=== PATIENT | male | born 2000 | race Hispanic/Latino ===

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

== ENCOUNTER 2024-08-05 13:02 | Emergency (ER) | payer SELFPAY ==
[~2024-08-05] VITALS: Ht 165.1 cm; Wt 102.1 kg
--- NOTE | 2024-08-05 13:14 | ERN ---
ED Note History of Present Illness Stated Complaint: CHEST PAIN,BACK PAIN Chief Complaint: Back Pain-No Injury Time Seen by MD: 13:06 Dictation: PATIENT IS A 24-YEAR-OLD MALE COMING IN TODAY STATES HE IS NOT HAVING ANY PAIN AT THE PRESENT TIME HOWEVER LAST WEEK WOKE UP WITH CHEST PAIN AND UPPER BACK PAIN. HE SAID HE TOOK SOME MEDICATIONS [id number] FOR THE PAIN AND IT TOOK A WHILE BUT THE PAIN WENT AWAY. HE SAID IT HE STATES HE IS NOT HAVING ANY PAIN NOW HOWEVER COLD WANTS TO BE CHECKED OUT. NO PRIMARY CARE DOCTOR NO ALLERGIES NO HISTORY OF GASTRITIS GERD BACK INJURIES CAD HYPERTENSION DIABETES. Allergies: Coded Allergies: No Known Allergies (Unverified Allergy, Unknown, 08/05/24) Past Medical History RN Note Reviewed/Agreed w/PFSH: Yes Review of System Dictation CONSTITUTIONAL: NEGATIVE EXCEPT FOR HPI HEAD/FACE: NEGATIVE EXCEPT FOR HPI EENT: NEGATIVE EXCEPT FOR HPI RESPIRATORY: NEGATIVE EXCEPT FOR HPI CHEST PAIN GASTROINTESTINAL/ABDOMINAL: NEGATIVE EXCEPT FOR HPI GENITOURINARY: NEGATIVE EXCEPT FOR HPI MUSCULOSKELETAL: NEGATIVE EXCEPT FOR HPI THORACIC PAIN INTEGUMENTARY: NEGATIVE EXCEPT FOR HPI NEUROLOGICAL/PSYCH: NEGATIVE EXCEPT FOR HPI HEMATOLOGIC/LYMPHATIC: NEGATIVE EXCEPT FOR HPI ALL SYSTEMS NEGATIVE, EXCEPT NOTED ABOVE. 13 POINT REVIEW OF SYSTEMS ASSESSED AND ALL NEGATIVE EXCEPT FOR ABOVE. Initial Vital Sign VS Vital Signs Date Time Temp Pulse Resp B/P (MAP) Pulse Ox O2 Delivery O2 Flow Rate FiO2 08/05/24 13:10 97.5 58 16 140/80 98 Room Air 0 08/05/24 13:23 21 Physical Exam Dictation VITAL SIGNS REVIEWED GENERAL APPEARANCE: ALERT, ORIENTED X 3, NO ACUTE DISTRESS, WELL DEVELOPED, NOURISHED. OBESE/0/10 AT THE PRESENT TIME HEAD AND FACE: NON-TRAUMATIC. EYES: PERRL, PINK CONJUNCTIVAS, EYELID NO TRAUMA, ANTERIOR CHAMBER WITH ARCUS SENILIS. EARS: PINNAS INTACT AND NO SIGNS OF TRAUMA OR ERYTHEMA EAR CANALS CLEAR AND NO DISCHARGE TM NO ERYTHEMA NOSE: NO DISCHARGE, NO BLEEDING. OROPHARYNX: MOUTH NORMAL, TONGUE PINK, PHARYNX CLEAR,NO ERYTHEMA, TONSILS NO EXUDATES, NO ABSCESSES NOTED, MUCOUS MEMBRANE MOIST NECK: SUPPLE, NON-TENDER, NO THYROMEGALY, NO MASSES, NO JVD, NO BRUITS BREAST:DEFERRED CHEST:NO TENDERNESS, NO CREPITUS, NO PARADOXICAL MOVEMENT, NO RETRACTIONS LUNGS:CLEAR, WELL-VENTILATED, SYMMETRIC, NO RALES, NO WHEEZING, NO RHONCHI, NO STRIDOR, GOOD BREATH SOUNDS BILATERALLY HEART: REGULAR RATE, REGULAR RHYTHM, NO MURMUR, NO GALLOPS VASCULAR: NO PERIPHERAL EDEMA, ABDOMEN: SOFT, POSITIVE BOWEL SOUNDS, NONDISTENDED, NO GUARDING, NONTENDER, NO REBOUND, NO MASSES NO HEPATOMEGALY, NO SPLENOMEGALY, NO BEATTY'S SIGN, NO HERNIAS. RECTAL: DEFERRED GENITAL: DEFERRED NEUROLOGICAL: NORMAL SPEECH, MOTOR FUNCTION INTACT, SENSORY FUNCTION INTACT MUSCULOSKELETAL: NECK NONTENDER, FULL RANGE OF MOTION, BACK NONTENDER, FULL RANGE OF MOTION, EXTREMITIES: NONTENDER, FULL RANGE OF MOTION SKIN: COLOR PINK, DRY, NO TURGOR, NO RASH, NO LACERATIONS, NO ABRASIONS, NO CONTUSIONS. LYMPHATIC: DEFERRED Results (Laboratory/Radiology) Laboratory/Radiology Laboratory Tests Test 08/05/24 13:21 White Blood Count 8.4 K/uL (4.8-10.8) Red Blood Count 4.71 MIL/uL (4.50-6.20) Hemoglobin 14.6 g/dL (14.0-18.0) Hematocrit 41.4 % (42-54) L Mean Corpuscular Volume 87.9 fL (79-99) Mean Corpuscular Hemoglobin 31.0 pg (27.0-33.0) Mean Corpuscular Hemoglobin Concent 35.3 g/dL (32.0-36.0) Red Cell Distribution Width 13.2 % (11.0-15.5) Platelet Count 277 K/uL (130-400) Mean Platelet Volume 9.9 fL (7.5-10.5) Immature Granulocyte % (Auto) 0.4 % (0-1) Neutrophils (%) (Auto) 64.9 % (40.0-77.0) Lymphocytes (%) (Auto) 19.8 % (21.0-51.0) L Monocytes (%) (Auto) 8.7 % (3.0-13.0) Eosinophils (%) (Auto) 5.6 % (0.0-8.0) Basophils (%) (Auto) 0.6 % (0.0-5.0) Neutrophils # (Auto) 5.5 K/uL (1.8-7.7) Lymphocytes # (Auto) 1.7 K/uL (1.0-4.8) Monocytes # (Auto) 0.7 K/uL (0.1-1.0) Eosinophils # (Auto) 0.47 K/uL (0.00-0.70) Basophils # (Auto) 0.05 K/uL (0.00-0.20) Absolute Immature Granulocyte (auto 0.03 K/uL (0-1) Nucleated Red Blood Cells 0.0 % (0.0-0.19) Sodium Level 138 mmol/L (136-145) Potassium Level 3.6 mmol/L (3.5-5.1) Chloride Level 104 mmol/L (101-111) Carbon Dioxide Level 27 mmol/L (21-32) Blood Urea Nitrogen 9 mg/dL (7-18) Creatinine 0.8 mg/dL (0.5-1.3) Glomerular Filtration Rate Calc 128 mL/min (>90) Random Glucose 102 mg/dL (70-105) Total Calcium 8.7 mg/dL (8.5-10.1) Troponin I High Sensitivity 6 ng/L (4-75) Labs Reviewed?: Yes EKG Comment: EKG SINUS BRADYCARDIA/HEART RATE 59/AXIS NORMAL/EARLY REPOLARIZATION SEEN V2 THROUGH V SIX ED Course ED Course Orders Procedure Category Date Status Time Cbc With Differential LAB 08/05/24 Complete 13:11 12 Lead Ekg Tracing- EKG 08/05/24 Logged Technical 13:11 Troponin I High LAB 08/05/24 Complete Sensitivity 13:11 Basic Metabolic Panel LAB 08/05/24 Complete 13:11 Vital Signs Date Time Temp Pulse Resp B/P (MAP) Pulse Ox O2 Delivery O2 Flow Rate FiO2 08/05/24 13:23 97.5 58 16 140/80 98 Room Air* 0 21 08/05/24 13:10 97.5 58 16 140/80 98 Room Air 0 1345/LABS EKG AND TROPONIN ALL NORMAL. PATIENT WILL BE DISCHARGED HOME TO FOLLOW UP WITH THE DOCTOR, WE WILL BE GIVEN LIST OF PRIMARY CARE DOCTORS ON STAFF. HEART Score Response (Comments) Value EKG: Repolarization changes 1 Age: < 45yrs (0) 0 Risk Factors: No known risk factors (0) 0 Initial Troponin: Normal limit (0) 0 Total 1 Medical Decision Making MDM MEDICAL DISCHARGE MAKING BASED ON BASIC LABS AND AN EKG FOR CHEST PAIN. PATIENT HAS A ECTOPIC BRADYCARDIA TROPONIN NEGATIVE AND LABS NEGATIVE DISCHARGED HOME WITH ATYPICAL CHEST DX & DISP Disposition: Discharge Departure Impression: Primary Impression: Atypical chest pain Condition: Stable Additional Instructions: FOLLOW-UP WITH PRIMARY CARE PROVIDER IN 1 TO 2 DAYS. TAKE MEDICATIONS DIRECTED HERE IN THE EMERGENCY ROOM. OKAY TO CONTINUE HOME MEDICATIONS UNLESS OTHERWISE DISCUSSED DURING YOUR VISIT IN THE EMERGENCY ROOM TODAY. RETURN TO YOUR NEAREST EMERGENCY ROOM IF SYMPTOMS WORSEN OR IF THERE IS NO IMPROVEMENT. CALL 911 IF YOU NEED IMMEDIATE ASSISTANCE. TAKE TYLENOL OR MOTRIN [id number] NEEDED AND IF NO CONTRAINDICATIONS ARE PRESENT. INCREASE ORAL HYDRATION. A WOUND CULTURE OR URINE CULTURE WAS ORDERED HERE IN THE EMERGENCY ROOM DEPARTMENT PLEASE FOLLOW-UP WITH PRIMARY CARE PROVIDER AND ADVISE THEM TO GET REPEAT PORTS FROM OUR FACILITY. IF YOU HAD ANY UYEN WRAP/SPLINTS THAT WERE APPLIED HERE, PLEASE DO NOT REMOVE THEM UNTIL YOU SEE YOUR PRIMARY CARE OR SPECIALTY. DIET AND ACTIVITY TOLERATED. CALL [facility] FOR AN APPOINTMENT IN THE NEXT 2-3 DAYS IN YOUR CONVENIENCE Referrals: SELF,REFERRAL (PCP) JOSE ALVAREZ MD Time of Disposition: 13:50 I have reviewed the case, and I agree with, Diagnosis and Plan DAVID AGUDELO NP Aug 05, 2024 13:14
[2024-08-05 13:23] VITALS: BP 140/80; PULSE 58; RESP 16; TEMP 97.6; O2SAT 98
[2024-08-05 13:28] LABS: BASOPHILS # (AUTO) 0.05 K/uL (0.00-0.20); BASOPHILS % (AUTO) 0.6 % (0.0-5.0); EOSINOPHILS # (AUTO) 0.47 K/uL (0.00-0.70); EOSINOPHILS % (AUTO) 5.6 % (0.0-8.0); HEMATOCRIT 41.4 % (42-54); IMMATURE GRANULOCYTE ABSOLUTE 0.03 K/uL (0-1); LYMPHOCYTES # (AUTO) 1.7 K/uL (1.0-4.8); LYMPHOCYTES % (AUTO) 19.8 % (21.0-51.0); MEAN CORPUSCULAR HGB CONC 35.3 g/dL (32.0-36.0); MEAN CORPUSCULAR VOLUME 87.9 fL (79-99); MONOCYTES # (AUTO) 0.7 K/uL (0.1-1.0); MONOCYTES % (AUTO) 8.7 % (3.0-13.0); NEUTROPHILS # (AUTO) 5.5 K/uL (1.8-7.7); NEUTROPHILS % (AUTO) 64.9 % (40.0-77.0); PLATELET COUNT (AUTO) 277 K/uL (130-400); RED BLOOD CELL COUNT(AUTO) 4.71 MIL/uL (4.50-6.20); RED CELL DISTRIBUTION WIDTH 13.2 % (11.0-15.5); WHITE BLOOD COUNT (AUTO) 8.4 K/uL (4.8-10.8)
[2024-08-05 13:39] LABS: CREATININE 0.8 mg/dL (0.5-1.3); POTASSIUM 3.6 mmol/L (3.5-5.1)
--- NOTE | 2024-08-05 13:51 | EKG ---
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
[2024-08-06] MEDS ORDERED: FAMO10TA39 PO (06:26)
== END 2024-08-05 14:02 | disposition home or self-care (01) ==
LOC: EDH 13:02
DX: R07.89 Other chest pain (principal)
CPT/HCPCS: 36415; 80048; 84484; 85025; 93005; 99284

== ENCOUNTER 2024-08-06 05:02 | Emergency (ER) | payer SELFPAY ==
[~2024-08-06] VITALS: Ht 165.1 cm; Wt 104.3 kg
--- NOTE | 2024-08-06 05:11 | EKG ---
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
[2024-08-06] MEDS: LIDOCAINE HCL 2% VISCOUS 15 ML UDCUP PO ONE (05:24)
[2024-08-06] MEDS: MAG/ALUM/SIMETH 30 ML UDCUP PO ONE (05:24)
[2024-08-06] MEDS: LACTATED RINGERS 1000ML IV STA (05:25)
[2024-08-06] MEDS: CYCLOBENZAPRINE HCL 10 MG TABLET PO ONE (05:25)
[2024-08-06] MEDS: ketOROlac 30MG VIAL (30MG/ML) IVP ONE (05:25)
[2024-08-06] MEDS: DICYCLOMINE HCL 10 MG/5 ML ML PO ONE (05:25)
--- NOTE | 2024-08-06 05:33 | ERN ---
General Chief Complaint: Chest Pain Stated Complaint: CHEST PAIN Time Seen by MD: 05:15 Source: patient History of Present Illness Initial Comments Patient is a healthy 24-year-old male who today was stricken with acute midepigastric and right upper quadrant pain. He has no other symptoms. This is the 1st time he has had this pain. No shortness of breath no chest pain no upp er respiratory tract infection no change in his urinations. He is otherwise healthy no meds no allergies. He does not use recreational drugs. Allergies: Coded Allergies: No Known Allergies (Unverified Allergy, Unknown, 08/05/24) Past Medical History Past Medical History: No Pertinent History Past Surgical History: None Constitutional: (-) chills, (-) diaphoresis, (-) fever, (-) malaise, (-) weakness, (-) other documentation EENTM: (-) eye pain, (-) blurred vision, (-) tearing, (-) double vision, (-) ear pain, (-) ear discharge, (-) nose pain, (-) nose congestion, (-) throat pain, (-) Throat swelling, (-) mouth pain, (-) tooth pain, (-) mouth swelling, (-) other documentation Respiratory: (-) cough, (-) orthopnea, (-) short of breath, (-) stridor, (-) wheezing, (-) other documentation Cardiovascular: (-) chest pain, (-) edema, (-) palpitations, (-) syncope, (-) dyspnea on exertion, (-) other documentation Gastrointestinal/Abdominal: (-) nausea, (-) vomiting, (-) diarrhea, (-) abdominal pain, (-) abdominal distention, (-) constipation, (-) rectal bleeding, (-) dark stool/melena, (-) other documentation Musculoskeletal: (-) Neck pain, (-) back pain, (-) Flank Pain, (-) joint pain, (-) joint swelling, (-) muscle pain, (-) muscle stiffness, (-) gout, (-) other documentation Skin: (-) laceration, (-) contusion, (-) abrasion, (-) abscess, (-) rash, (-) change in color, (-) change in hair, (-) change in nails, (-) diaphoresis, (-) dryness, (-) other documentation Neuro: (-) altered mental status, (-) headache, (-) syncope, (-) paralysis, (-) numbness, (-) seizure, (-) pre-existing deficit, (-) tremors, (-) weakness, (-) dizziness, (-) slurred speech, (-) vertigo, (-) other documentation Physical Exam General Appearance: (+) moderate distress Orientation: (+) alert, (+) oriented x 3 Head/Face Trauma: No Eye: bilateral eye normal inspection, bilateral eye PERRL, bilateral eye EOMI Ear, Nose, Throat: (+) hearing grossly normal, (+) normal ENT inspection Neck: (+) normal inspection, (+) supple Respiratory: (+) chest non-tender, (+) lungs clear, (+) well ventilated Heart: (+) regular, (+) no gallop Vascular: (+) no edema, (+) normal peripheral pulse Gastrointestinal: (+) soft, (+) tender, (+) bowel sound absent Gastrointestinal Comment Patient with sub xiphoid pain and tenderness. Back: (+) no CVA tenderness Extremities: (+) normal range of motion, (+) normal inspection Results Laboratory and Microbiology Lab and Micro Result Laboratory Tests Test 08/06/24 05:20 White Blood Count 11.2 K/uL (4.8-10.8) #H Red Blood Count 4.87 MIL/uL (4.50-6.20) Hemoglobin 15.0 g/dL (14.0-18.0) Hematocrit 42.4 % (42-54) Mean Corpuscular Volume 87.1 fL (79-99) Mean Corpuscular Hemoglobin 30.8 pg (27.0-33.0) Mean Corpuscular Hemoglobin Concent 35.4 g/dL (32.0-36.0) Red Cell Distribution Width 13.0 % (11.0-15.5) Platelet Count 304 K/uL (130-400) Mean Platelet Volume 10.3 fL (7.5-10.5) Immature Granulocyte % (Auto) 0.4 % (0-1) Neutrophils (%) (Auto) 58.8 % (40.0-77.0) Lymphocytes (%) (Auto) 25.4 % (21.0-51.0) Monocytes (%) (Auto) 10.9 % (3.0-13.0) Eosinophils (%) (Auto) 4.0 % (0.0-8.0) Basophils (%) (Auto) 0.5 % (0.0-5.0) Neutrophils # (Auto) 6.6 K/uL (1.8-7.7) Lymphocytes # (Auto) 2.9 K/uL (1.0-4.8) Monocytes # (Auto) 1.2 K/uL (0.1-1.0) H Eosinophils # (Auto) 0.45 K/uL (0.00-0.70) Basophils # (Auto) 0.06 K/uL (0.00-0.20) Absolute Immature Granulocyte (auto 0.04 K/uL (0-1) Nucleated Red Blood Cells 0.0 % (0.0-0.19) Sodium Level 140 mmol/L (136-145) Potassium Level 3.2 mmol/L (3.5-5.1) L Chloride Level 104 mmol/L (101-111) Carbon Dioxide Level 25 mmol/L (21-32) Blood Urea Nitrogen 11 mg/dL (7-18) Creatinine 1.0 mg/dL (0.5-1.3) Glomerular Filtration Rate Calc 109 mL/min (>90) Random Glucose 118 mg/dL (70-105) H Total Calcium 9.0 mg/dL (8.5-10.1) Total Bilirubin 0.4 mg/dL (0.2-1.0) Direct Bilirubin 0.1 mg/dL (0.0-0.3) Aspartate Amino Transf (AST/SGOT) 16 U/L (10-37) Alanine Aminotransferase (ALT/SGPT) 21 U/L (12-78) Alkaline Phosphatase 86 U/L (50-136) Troponin I High Sensitivity 5 ng/L (4-75) Total Protein 8.1 g/dL (6.0-8.3) Albumin 4.0 g/dL (3.5-5.0) Lipase 31 U/L (16-77) MDM Patient with an initial complaint of chest pain that then became epigastric pain. We have given him a GI cocktail as well as Toradol and Flexeril. We have ordered the standard labs and bolusing him with fluid. Once his pain has calmed down I will examine him further and decide about imaging. On further exam patient's pain really is pinpoint to the subxiphoid process. He does not have tenderness at Sherwood's point. He does not have tenderness anywhere else in his abdomen. He does not have peritoneal signs. The way the patient describes the pain is not consistent with gallbladder pain either. The GI cocktail also settled the patient's pain well. I will discharge him with a prescription for Pepcid. He should follow up with his primary care physician if he needs stronger antacids. ED Course Orders Procedure Category Date Status Time Vital Signs Per CPOE 08/06/24 Transmitted Routine 05:05 Chest 1vw RAD 08/06/24 Taken 05:05 12 Lead Ekg Tracing- EKG 08/06/24 Complete Technical 05:05 Oxygen By Nc/Pulse Ox CPOE 08/06/24 Transmitted 05:05 Maintain Iv CPOE 08/06/24 Transmitted 05:05 Iv Insertion CPOE 08/06/24 Transmitted 05:05 Cardiac Monitoring CPOE 08/06/24 Transmitted 05:05 Pulse Oximetry With CPOE 08/06/24 Transmitted Vs And Prn 05:05 Cbc With Differential LAB 08/06/24 Complete 05:05 Activity: Br W/Brp CPOE 08/06/24 Transmitted With Assist 05:05 Troponin I High LAB 08/06/24 Complete Sensitivity 05:05 Urinalysis Profile LAB 08/06/24 Logged 05:05 Lipase LAB 08/06/24 Complete 05:09 Hepatic Function Panel LAB 08/06/24 Complete 05:09 Lidocaine Hcl 2% PHA 08/06/24 Complete Viscous (Lidocaine Hcl 05:30 Mag/Alum/Simeth 30ml PHA 08/06/24 Complete (Maalox Plus 30ml) 05:30 Dicyclomine Hcl PHA 08/06/24 Complete (Bentyl 10mg/5ml 05:30 Lactated Ringers PHA 08/06/24 Complete 1000ml (Lactated 05:15 Cyclobenzaprine Hcl PHA 08/06/24 Complete (Cyclobenzaprine Hcl 05:30 Ketorolac PHA 08/06/24 Complete Tromethamine 30mg/Ml 05:30 Basic Metabolic Panel LAB 08/06/24 Complete 05:20 Current Medications Medications (Trade) Dose Ordered Sig/Karely Route PRN Reason Start Time Stop Time Status Last Admin Dose Admin Al Hydroxide/Mg Hydroxide (MAALox PLUS 30ML) 30 ml ONCE ONCE PO 08/06/24 05:30 08/06/24 05:31 DC 08/06/24 05:24 Cyclobenzaprine HCl (Cyclobenzaprine HCl) 10 mg ONCE ONCE PO 08/06/24 05:30 08/06/24 05:31 DC 08/06/24 05:25 Dicyclomine HCl (Bentyl 10mg/5ml Syrup) 10 mg ONCE ONCE PO 08/06/24 05:30 08/06/24 05:31 DC 08/06/24 05:25 Ketorolac Tromethamine (toRADol) 30 mg ONCE ONCE IVP 08/06/24 05:30 08/06/24 05:31 DC 08/06/24 05:25 Lactated Ringer's (Lactated Ringers 1000ml) 1,000 ml BOLUS STAT IV 08/06/24 05:15 08/06/24 05:20 DC 08/06/24 05:25 Lidocaine HCl (Lidocaine HCl 2% Viscous) 10 ml ONCE ONCE PO 08/06/24 05:30 08/06/24 05:31 DC 08/06/24 05:24 Vital Signs Date Time Temp Pulse Resp B/P (MAP) Pulse Ox O2 Delivery O2 Flow Rate FiO2 08/06/24 05:14 98.1 87 20 139/83 97 Room Air* 0 21 08/06/24 05:14 97.9 87 20 139/83 98 Room Air 0 DX & DISP Disposition: Discharge Departure Impression: Primary Impression: Atypical chest pain Condition: Stable Scripts Famotidine (Pepcid AC) 10 Mg Tablet 1 TAB PO DAILY for 30 Days, #30 TAB 0 Refills Prov: ROES AKBAR MD 08/06/24 Additional Instructions: My best guess right now is that you have heartburn. There is such a thing as nocturnal acid secretion. I recommend taking Pepcid every night for going to b ed. I will write a prescription for this. You may need to go onto a stronger antacid like a proton pump inhibitor if the Pepcid does not work. Referrals: SELF,REFERRAL (PCP) ROSE AKBAR MD Aug 06, 2024 05:33
[2024-08-06 05:35] LABS: BASOPHILS # (AUTO) 0.06 K/uL (0.00-0.20); BASOPHILS % (AUTO) 0.5 % (0.0-5.0); EOSINOPHILS # (AUTO) 0.45 K/uL (0.00-0.70); HEMATOCRIT 42.4 % (42-54); IMMATURE GRANULOCYTE ABSOLUTE 0.04 K/uL (0-1); LYMPHOCYTES # (AUTO) 2.9 K/uL (1.0-4.8); LYMPHOCYTES % (AUTO) 25.4 % (21.0-51.0); MEAN CORPUSCULAR HEMOGLOBIN 30.8 pg (27.0-33.0); MEAN CORPUSCULAR HGB CONC 35.4 g/dL (32.0-36.0); MEAN CORPUSCULAR VOLUME 87.1 fL (79-99); MONOCYTES # (AUTO) 1.2 K/uL (0.1-1.0); MONOCYTES % (AUTO) 10.9 % (3.0-13.0); NEUTROPHILS # (AUTO) 6.6 K/uL (1.8-7.7); NEUTROPHILS % (AUTO) 58.8 % (40.0-77.0); PLATELET COUNT (AUTO) 304 K/uL (130-400); RED BLOOD CELL COUNT(AUTO) 4.87 MIL/uL (4.50-6.20); WHITE BLOOD COUNT (AUTO) 11.2 K/uL (4.8-10.8)
[2024-08-06 05:45] LABS: BILIRUBIN,DIRECT 0.1 mg/dL (0.0-0.3); BILIRUBIN,TOTAL 0.4 mg/dL (0.2-1.0); POTASSIUM 3.2 mmol/L (3.5-5.1); TOTAL PROTEIN, SERUM 8.1 g/dL (6.0-8.3)
[2024-08-06] MEDS ORDERED: FAMO10TA39 PO (06:26)
[2024-08-06 06:30] VITALS: BP 144/82; PULSE 82; RESP 18; TEMP 98.4; O2SAT 97
[2024-08-06 07:10] LABS: APPEARANCE,URINE CLEAR (CLEAR); BILIRUBIN,URINE NEGATIVE (NEGATIVE); COLOR,URINE LIGHT-YELLOW (YELLOW); GLUCOSE, URINE (UA) NEGATIVE (NEGATIVE); KETONES,URINE 10 mg/dL (NEGATIVE); LEUKOCYTE ESTERASE ,URINE NEGATIVE Leu/uL (NEGATIVE); NITRATE,URINE NEGATIVE (NEGATIVE); OCCULT BLOOD,URINE NEGATIVE (NEGATIVE); PROTEIN,URINE NEGATIVE (NEGATIVE); UROBILINOGEN,URINE 0.2 mg/dL (0.2-1.0)
[2024-08-06 07:11] LABS: ADD UA MICROSCOPIC YES
[2024-08-06 07:15] LABS: MUCUS,URINE RARE LPF (None Seen); RBC,URINE 0-1 /HPF (0-1); SQUAMOUS EPITHELIAL CELL,UR RARE /HPF (0-2); WBC,URINE 0-1 /HPF (0-1)
--- NOTE | 2024-08-06 09:28 | HMCIMG ---
CHEST 1VW REASON: CHEST PAIN COMPARISON: 01/17/2003 FINDINGS: Single view of the chest was obtained. Lungs are clear. Heart size is normal. There is no pulmonary vascular congestion. Mediastinum and bony thorax appear unremarkable. IMPRESSION: 1. Normal single view chest x-ray.
== END 2024-08-06 06:44 | disposition home or self-care (01) ==
LOC: EDH 05:02
DX: R07.89 Other chest pain (principal)
CPT/HCPCS: 99285; 96374; 71045; 80076; 84484; 80048; 83690; 85025; 81001; 36415; 93005; J1885; J7120